=== PATIENT | female | born 1975 | race Caucasian/White ===

== ENCOUNTER 2023-12-17 20:02 | Emergency (ER) | payer OTHER ==
[2023-12-17 20:17] VITALS: BP 134/84; PULSE 80; RESP 16; TEMP 98.4; BMI 34.9
== END 2023-12-17 21:02 | disposition home or self-care (01) ==
LOC: FER 20:02
DX: R51.9 Headache, unspecified (principal); J02.9 Acute pharyngitis, unspecified; R09.81 Nasal congestion; J01.90 Acute sinusitis, unspecified; Z20.822 Contact with and (suspected) exposure to COVID-19
CPT/HCPCS: 0241U-QW; 87070; 99283-25